=== PATIENT | female | born 1985 | race African-American/Black ===

== ENCOUNTER 2019-07-19 15:33 | Emergency (ER) | payer SELFPAY ==
[~2019-07-19] VITALS: Ht 165.1 cm; Wt 59.0 kg
[2019-07-19] MEDS ORDERED: TRAMADOL HCL 50 MG TAB PO ONE (16:15)
== END 2019-07-19 17:00 | disposition home or self-care (01) ==
LOC: FSED 15:33
DX: R10.2 Pelvic and perineal pain (principal); N30.90 Cystitis, unspecified without hematuria
CPT/HCPCS: 81003; 81025; 99283